=== PATIENT | male | born 2000 | race Caucasian/White ===

== ENCOUNTER 2021-11-17 22:05 | Emergency (ER) | payer OTHER ==
[~2021-11-17] VITALS: Ht 170.2 cm; Wt 79.4 kg
[2021-11-17 23:23] LABS: Influenza A, PCR NEGATIVE (NEGATIVE); Influenza B, PCR NEGATIVE (NEGATIVE); Resp Syncytial Virus, PCR NEGATIVE (NEGATIVE); SARS-Cov-2 (COVID-19) PCR, MMC NEGATIVE (NEGATIVE)
== END 2021-11-18 00:41 | disposition home or self-care (01) ==
LOC: ER 22:05
PROVIDERS: Physician Assistant
DX: B34.9 Viral infection, unspecified (principal); Z20.822 Contact with and (suspected) exposure to COVID-19
CPT/HCPCS: 0241U; 96372; 99284-25; J1885